=== PATIENT | male | born 1990 | race Caucasian/White ===

== ENCOUNTER → 2021-02-21 02:21 | Outpatient (CLI) | payer BC, SELFPAY ==
[2021-02-21 16:16] LABS: SARS-CoV-2 RNA PCR Negative
== END ==
PROVIDERS: PCP Family Medicine; Visit Provider Internal Medicine Gastroenterology
DX: Z01.812 Encounter for preprocedural laboratory examination (principal); Z20.822 Contact with and (suspected) exposure to COVID-19
CPT/HCPCS: C9803; U0003; U0005

== ENCOUNTER 2021-02-24 01:57 | Day surgery (SDC) | payer BC, SELFPAY ==
[2021-02-03 14:04] VITALS: BMI 37.6
[2021-02-24 09:50] VITALS: BP 141/86; PULSE 70; RESP 20; TEMP 36; O2SAT 100; BMI 38.2
[2021-02-24] MEDS: LACTATED RINGERS 1,000 ML 150 ML IV CONT (10:26)
--- NOTE | 2021-02-24 10:51 | WPDGICN ---
Assessment and Plan Assessment and plan (1) Diarrhea: Code(s): R19.7 - Diarrhea, unspecified Status: Acute Assessment and Plan: Patient appears to have chronic loose stools with intermittent loose watery stools. The etiology of which is unclear. His symptoms could be related to irritable bowel syndrome. Agree with proceeding with colonoscopy. A trial of a high fiber supplementation may also be of benefit. Further recommendations will be given after endoscopy. GI Consult Note Consult date/time: 02/24/21 10:51 HPI: Christian Mansfield is a 30 year old male Presents for colonoscopy. Patient seen at the request of Dr. Abdi Rondon. Patient reports chronic loose and diarrhea stools. Patient states this been present for at least 2 years. Stools are baseline tend to be loose. He has more frequent diarrhea stools there liquid. This apparently occurs intermittently and may last for several days. there appears to be associated abdominal pain. Patient denies a fever. He has had no obvious bleeding. Symptoms appear very sporadic and intermittent. Patient has tried probiotics empirically. No other specific therapies have been entertained. Follow-up there workup has been performed at this point. Review of Systems Review of Systems: All systems reviewed & are unremarkable except as noted in HPI and below PMFSH Past Medical History Medical History (Updated 02/24/21 @ 10:54 by Dre Bruno MD) GERD (gastroesophageal reflux disease) THONY (obstructive sleep apnea) Family History Family History Father Hypertension Social History Social History (Updated 01/04/21 @ 13:36 by Deborah Kate) Social History: Single Smoking status: Never smoker Second hand tobacco smoke exposure: No Alcohol intake: current Alcohol use details: 1 per month Substance use: never Substance use type: does not use Living arrangements: with family Gender identity (if verbalized by the patient): Male Spiritual care concerns: No Meds Home Medications and Allergies Home Medications Medication Instructions Recorded Confirmed Type ascorbic acid (vitamin C) 1,000 mg 1 g PO DAILY 11/23/20 02/24/21 History tablet pantoprazole 40 mg tablet,delayed 40 mg PO QAM 11/23/20 02/24/21 History release vitamin B complex 1 tablet PO DAILY 11/23/20 02/24/21 History zinc 50 mg PO DAILY 02/03/21 02/24/21 History Allergies Allergy/AdvReac Type Severity Reaction Status Date / Time No Known Allergies Allergy Verified 02/24/21 09:49 Vital Signs Vital Signs - 24 hr 02/24/21 09:50 Temperature 96.8 F L Pulse Rate 70 Respiratory Rate 20 Blood Pressure 141/86 H Pulse Oximetry 100 Exam Narrative: Exam Narrative: Physical exam reveals patient be alert. Vital signs stable. HEENT exam is unremarkable. Patient is anicteric. Lungs are clear to auscultation and percussion. Heart is without murmur or extra sounds. Abdomen bowel sounds are present soft nontender with no organomegaly. Digital external rectal exam is normal.
--- NOTE | 2021-02-24 11:04 | WPDANESEPPF ---
Anes - Initial Pre Proc Eval Procedure: Operation Date: 02/24/21 10:45 Proposed Procedures p Colonoscopy - Dre Bruno MD Date/Time: 02/24/21 11:04 Surgeon: Dre Bruno MD Pre Op Diagnosis: colitis, gastritis Patient Data Age: 30 Gender: M Height: 1.7 m Weight: 110.8 kg Last Vital Signs Temp 96.8 F L 02/24/21 09:50 Pulse 70 02/24/21 09:50 Resp 20 02/24/21 09:50 BP 141/86 H 02/24/21 09:50 Pulse Ox 100 02/24/21 09:50 Allergies Allergy/AdvReac Type Severity Reaction Status Date / Time No Known Allergies Allergy Verified 02/24/21 09:49 Home Medications Medication Instructions Recorded Confirmed Type ascorbic acid (vitamin C) 1,000 mg 1 g PO DAILY 11/23/20 02/24/21 History tablet pantoprazole 40 mg tablet,delayed 40 mg PO QAM 11/23/20 02/24/21 History release vitamin B complex 1 tablet PO DAILY 11/23/20 02/24/21 History zinc 50 mg PO DAILY 02/03/21 02/24/21 History Patient hx anesthesia problems: none Family hx anesthesia problems: none PMFSH Past Medical History Medical History (Updated 02/24/21 @ 10:54 by Dre Bruno MD) GERD (gastroesophageal reflux disease) THONY (obstructive sleep apnea) Family History Family History Father Hypertension Social History Social History (Updated 01/04/21 @ 13:36 by Deborah Kate) Social History: Single Smoking status: Never smoker Second hand tobacco smoke exposure: No Alcohol intake: current Alcohol use details: 1 per month Substance use: never Substance use type: does not use Living arrangements: with family Gender identity (if verbalized by the patient): Male Spiritual care concerns: No Anes - Eval Final PreProcedure Day of Procedure 02/24/21 11:04 Patient weight: obese Heart: regular rate and rhythm Lungs: clear to auscultation Airway: Mallampati scale class III Neurological: alert and oriented Last oral intake: >/= 8 hours ASA classification: III Emergent: no Anesthetic plan: proceed Anesthesia type and monitoring: general GIVS and standard monitoring Informed Consent: The patient's anesthetic plan and its attendant risks and benefits were discussed with the patient/family/POA. Questions were solicited and answers provided to the satisfaction of the patient/family/POA.
[2021-02-24 12:01] VITALS: BP 97/56; PULSE 72; RESP 20; O2SAT 100
[2021-02-24 12:11] VITALS: BP 104/62; PULSE 58; RESP 20; O2SAT 100
[2021-02-24 12:20] VITALS: BP 104/56; PULSE 58; RESP 18; O2SAT 100
== END 2021-02-24 12:40 | disposition home or self-care (01) ==
PROVIDERS: PCP Family Medicine; Visit Provider Internal Medicine Gastroenterology
PROC: 0DJD8ZZ Inspection of Lower Intestinal Tract, Via Natural or Artificial Opening Endoscopic (ICD-10-PCS; CPT 45378; principal; 2021-02-24 10:45)
DX: R19.7 Diarrhea, unspecified (principal); K64.8 Other hemorrhoids; K21.9 Gastro-esophageal reflux disease without esophagitis; G47.33 Obstructive sleep apnea (adult) (pediatric); E66.9 Obesity, unspecified; Z68.38 Body mass index [BMI] 38.0-38.9, adult
CPT/HCPCS: 45380; 88305; J2704; J7120

== ENCOUNTER 2021-10-04 08:59 | Emergency (ER) | payer BC, SELFPAY ==
--- NOTE | 2021-10-04 09:01 | ED.URI ---
HPI - URI/Sore Throat General Chief Complaint: Upper Respiratory Infection Stated Complaint: Sinus Congestion/Dizziness Time Seen by Provider: 10/04/21 09:01 Source: patient and RN notes reviewed History of Present Illness HPI Narrative: Patient is a 31-year-old male who presents the urgent care with complaints of sinus congestion, pressure, postnasal drainage and intermittent dizziness. Patient states he woke up with symptoms at 1 AM. States that he was treated 3 weeks ago, called his doctor, and was placed on azithromycin. Patient states that the symptoms returned. Denies any recent fevers, nausea, vomiting. Denies any known sick contacts. Patient has not taken anything [id number] for his symptoms. No other acute complaints. No acute distress noted. Patient read the plan of care. Some parts of this dictation were generated by voice recognition software and may contain typographical and/or grammatical inaccuracies. Related Data Allergies Allergy/AdvReac Type Severity Reaction Status Date / Time No Known Allergies Allergy Verified 06/28/21 13:13 Review of Systems Review of Systems: CONSTITUTIONAL: Denies fever, chills, or sweats. EYES: Denies visual changes, redness, or discharge. ENT: Reports of sinus congestion, nasal congestion, postnasal drainage and sinus pressure CARDIOVASCULAR: Denies chest pain, palpitations, or edema. RESPIRATORY: Denies cough or dyspnea. GASTROINTESTINAL: Denies abdominal pain, nausea, vomiting, or diarrhea. GENITOURINARY: Denies dysuria or hematuria. SKIN: Denies rash or itching. MUSCULOSKELETAL: Denies back pain, joint pain, or myalgia. NEUROLOGIC: Denies headache, numbness, or weakness. All other systems reviewed are negative, except as documented in HPI. [facility] Past Medical History Medical History (Updated 10/04/21 @ 09:24 by RADHA Mccall) GERD (gastroesophageal reflux disease) Obesity THONY (obstructive sleep apnea) Family History Family History Father Hypertension Social History Social History Social History: Single Smoking status: Never smoker Second hand tobacco smoke exposure: No Alcohol intake: current Alcohol use details: 1 per month Substance use: never Substance use type: does not use Gender identity (if verbalized by the patient): Male Sexual Orientation (if Verbalized by the Patient): Straight or Heterosexual Spiritual care concerns: No Comments At the time of my signature, I reviewed and agree with the nursing past medical, surgical, social, and family history. There is no relevant family history pertinent to the patient complaint. Exam Narrative: GENERAL: This is a well-nourished, well-developed patient, in no apparent distress. HEAD: normocephalic, atraumatic. EYES: PERRL. Sclera clear/white. Vision is grossly intact. EARS: External ears normal, auditory canals clear and without drainage. Moderate fluid noted behind bilateral TMs without otitis. TMs normal without perforation. Hearing grossly intact. NOSE: External nose normal with no obvious nasal discharge, nares without redness, clear to yellow rhinorrhea. THROAT: Mucous membranes moist, posterior pharynx clear. Moderate postnasal drainage NECK: Neck supple CARDIOVASCULAR: Regular rate and rhythm without murmurs, gallops, or rubs. RESPIRATORY: Clear to auscultation. Breath sounds equal bilaterally. No wheezes, rales, or rhonchi. SKIN: warm, intact with no suspicious lesions or rash, good texture and turgor. NEURO: awake, alert, and oriented to person, place and time. There were no obvious focal neurologic abnormalities. EXTREMITIES: No clubbing, cyanosis, or edema. Course Course Level of Care: Express Care Visit Vital Signs Vital signs: Vital Signs Temperature 99.6 F 10/04/21 09:10 Pulse Rate 98 10/04/21 09:10 Respiratory Rate 16 10/04/21 09:10 B
[2021-10-04 09:10] VITALS: BP 131/81; PULSE 98; RESP 16; TEMP 37.6; O2SAT 98
== END 2021-10-04 09:32 | disposition home or self-care (01) ==
PROVIDERS: Emergency Provider Nurse Practitioner Family; PCP Family Medicine
DX: J32.9 Chronic sinusitis, unspecified (principal); K21.9 Gastro-esophageal reflux disease without esophagitis; G47.33 Obstructive sleep apnea (adult) (pediatric); E66.9 Obesity, unspecified; Z68.39 Body mass index [BMI] 39.0-39.9, adult
CPT/HCPCS: 99213; G0463